=== PATIENT | male | born 1980 | race Hispanic/Latino ===

== ENCOUNTER 2022-10-21 13:30 | Emergency (ER) | payer BC ==
[~2022-10-21] VITALS: Ht 167.6 cm; Wt 108.9 kg
[2022-10-21 14:05] VITALS: O2SAT 96
[2022-10-21] MEDS ORDERED: IBUPROFEN 600 MG TAB PO STA (14:19)
[2022-10-21] MEDS ORDERED: IBUPROFEN 600 MG TAB ONE (14:23)
[2022-10-21] MEDS ORDERED: IBUPROFEN600 MG PO (15:11)
== END 2022-10-21 15:19 | disposition home or self-care (01) ==
LOC: FSED 13:35
DX: R07.89 Other chest pain (principal); I10 Essential (primary) hypertension
CPT/HCPCS: 71046; 99283